=== PATIENT | female | born 1960 | race Caucasian/White ===

== ENCOUNTER 2022-01-15 12:38 | Emergency (ER) | payer MEDICARE, OTHER ==
[~2022-01-15] VITALS: Ht 172.7 cm; Wt 100.2 kg
[~2022-01-15 12:38] MED LIST: ALLEGRA ALLERG180 MG PO; FOLI1 PO; IBUP800; METTREX2.5 PO; PRED5 PO; SIMPONI50 MG/0.1
== END 2022-01-15 14:42 | disposition left against medical advice (07) ==
LOC: ER 12:38
DX: R07.81 Pleurodynia (principal); Z79.52 Long term (current) use of systemic steroids; Z79.899 Other long term (current) drug therapy
CPT/HCPCS: 71101; 99283-25